=== PATIENT | male | born 1995 | race Caucasian/White ===

== ENCOUNTER 2019-04-20 15:35 | Emergency (ER) | payer OTHER ==
[~2019-04-20] VITALS: Ht 182.9 cm; Wt 74.3 kg
[2019-04-20 15:45] VITALS: BP 136/69
--- NOTE | 2019-04-20 16:20 | RAD ---
Examination: 3 views of the right shoulder and 2 views of the right clavicle HISTORY: History of fall COMPARISON: None available. FINDINGS: There is mild displaced fracture of the midshaft of the right clavicle. Examination limited due to positioning. The acromioclavicular joint grossly appears unremarkable. The humerus head is within the glenoid. IMPRESSION: 1. Mild displaced fracture of the midshaft of the right clavicle. Electronically signed by: Jimi Whitaker MD (04/20/2019 4:17 PM) [facility]
--- NOTE | 2019-04-20 16:23 | PHYS DOC ---
Past History Past Medical History: No Pertinent History Past Surgical History: No Surgical History Alcohol Use: None Adult General Chief Complaint Chief Complaint: SHOULDER INJURY HPI HPI 23-year-old male presents with right shoulder pain. [place] he caught the front edge of his snowboard and fell onto the right shoulder with his arm outstretched. He had immediate pain and felt like his shoulder was contracted toward the middle of his body. He was immediately concerned about fracture. 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 The patient's pain is controlled at this time, but it is a 6 out of 10. He is initially declining pain medication. He denies hitting his head. He has no other complaints at this time. Review of Systems Review of Systems Constitutional: Denies fever or chills [] Eyes: Denies change in visual acuity, redness, or eye pain [] HENT: Denies nasal congestion or sore throat [] Respiratory: Denies cough or shortness of breath [] Cardiovascular: No additional information not addressed in HPI [] GI: Denies abdominal pain, nausea, vomiting, bloody stools or diarrhea [] : Denies dysuria or hematuria [] Musculoskeletal: Right shoulder pain[] Integument: Denies rash or skin lesions [] Neurologic: Denies headache, focal weakness or sensory changes [] Endocrine: Denies polyuria or polydipsia [] All other systems were reviewed and found to be within normal limits, except as documented in this note. Allergies Allergies Allergies Coded Allergies Type Severity Reaction Last Updated Verified No Known Drug Allergies 04/20/19 No Physical Exam Physical Exam Constitutional: Well developed, well nourished, no acute distress, non-toxic appearance. [] HENT: Normocephalic, atraumatic, bilateral external ears normal, oropharynx moist, no oral exudates, nose normal. [] Eyes: PERRLA, EOMI, conjunctiva normal, no discharge. [] Neck: Normal range of motion, no tenderness, supple, no stridor. [] Cardiovascular:Heart rate regular rhythm, no murmur [] Lungs & Thorax: Bilateral breath sounds clear to auscultation [] Abdomen: Bowel sounds normal, soft, no tenderness, no masses, no pulsatile masses. [] Skin: Warm, dry, no erythema, no rash. [] Back: No tenderness, no CVA tenderness. [] Extremities: Her numbness over the right clavicle, shortening of the shoulder girdle medially, likely clavicle fracture[] Neurologic: Alert and oriented X 3, normal motor function, normal sensory function, no focal deficits noted. [] Psychologic: Affect normal, judgement normal, mood normal. [] EKG EKG [] Radiology/Procedures Radiology/Procedures [] Course & Med Decision Making Course & Med Decision Making Pertinent Labs and Imaging studies reviewed. (See chart for details) The patient does have a right clavicle fracture we'll place him in an immobilizer and I will give him [place] 5/325 in the emergency room as well as prescription for home. He is stable for discharge at this time. [] Dragon Disclaimer Dragon Disclaimer This electronic medical record was generated, in whole or in part, using a voice recognition dictation system. Departure Departure: Impression: Primary Impression: Right clavicle fracture Disposition: HOME, SELF-CARE Condition: STABLE Referrals: PCP,NO (PCP) Patient Instructions: Clavicle Fracture, [id number] Scripts Hydrocodone Bit/Acetaminophen ([place] 5-325 TABLET) 1 Each Tablet 1 TAB PO PRN Q6HRS PRN for PAIN, #14 TAB 0 Refills Prov: ANGELA HURT DO 04/20/19 Problem Qualifiers Primary Impression: Right clavicle fracture Encounter type: initial encounter Clavicle location: shaft Fracture type: closed Fracture alignment: displaced Qualified Codes: S42.021A - Displaced fracture of shaft of right clavicle, initial encounter for closed fracture ANGELA HURT DO Apr 20, 2019 16:23
[2019-04-20] MEDS ORDERED: HYDR-3165 PO (16:38)
[2019-04-20] MEDS ORDERED: HYDROcodone/APAP 5/325MG 1 TAB TABLET PO ONE (16:45)
== END 2019-04-20 16:48 | disposition home or self-care (01) ==
LOC: ER 15:35
DX: S42.021A Displaced fracture of shaft of right clavicle, initial encounter for closed fracture (principal); W23.0XXA Caught, crushed, jammed, or pinched between moving objects, initial encounter; Y93.23 Activity, snow (alpine) (downhill) skiing, snowboarding, sledding, tobogganing and snow tubing; Y92.838 Other recreation area as the place of occurrence of the external cause; Y99.8 Other external cause status
CPT/HCPCS: 29240; 73000; 73030; 99284